=== PATIENT | female | born 1960 | race Caucasian/White ===

== ENCOUNTER → 2023-12-15 16:01 | Outpatient (REF) | payer OTHER, SELFPAY | LOC: WDC 16:01 | PROVIDERS: ATTENDING PHYSICIAN Obstetrics & Gynecology Gynecology; FAMILY PHYSICIAN Physician Assistant Medical | DX: Z12.31 Encounter for screening mammogram for malignant neoplasm of breast (principal) | CPT/HCPCS: 77063; 77067 ==

== ENCOUNTER → 2024-03-08 13:23 | Outpatient (REF) | payer OTHER, SELFPAY | LOC: RAD 13:23 | PROVIDERS: ATTENDING PHYSICIAN Physician Assistant Medical | DX: M79.604 Pain in right leg (principal); M79.89 Other specified soft tissue disorders | CPT/HCPCS: 93971 ==

== ENCOUNTER → 2024-04-05 08:51 | Outpatient (REF) | payer OTHER, SELFPAY | LOC: HWRAD 08:51 | PROVIDERS: ATTENDING PHYSICIAN Physician Assistant Medical | DX: M85.89 Other specified disorders of bone density and structure, multiple sites (principal) | CPT/HCPCS: 77080 ==

== ENCOUNTER → 2024-05-09 13:21 | Outpatient (REF) | payer OTHER, SELFPAY ==
[2024-05-09 13:50] LABS: % Basophils 0.9 % (0-2); % Eosinophils 2.6 % (0-6); % Immature Granulocytes 0.2 % (0-0.5); % Lymphocytes 21.7 % (20.5-51.1); % Monocytes 9.4 % (1.7-9.3); % Neutrophils 65.2 % (42.2-75.2); Absolute Basophils 0.1 10^3/uL (0-0.2); Absolute Eosinophils 0.2 10^3/uL (0-0.7); Absolute Lymphocytes 1.3 10^3/uL (1.2-3.4); Absolute Monocytes 0.6 10^3/uL (0.1-0.6); Absolute Neutrophils 3.8 10^3/uL (1.4-6.5); Hematocrit 40.2 % (37.0-47.0); Hemoglobin 13.1 g/dL (12.0-16.0); Mean Corp Hgb Conc. 32.6 g/dL (33.0-37.0); Mean Corpuscular Hgb 28.6 pg (27.0-31.0); Mean Corpuscular Volume 87.8 fL (81.0-99.0); Mean Platelet Volume 10.4 fL (7.4-10.4); Nucleated Red Blood Cells % 0 %; Platelet Count 231 10^3/uL (130-400); Red Blood Cell Count 4.58 10^6/uL (4.20-5.40); White Blood Cell Count 5.8 10^3/uL (4.8-10.8)
[2024-05-09 14:19] LABS: ALT (SGPT) 36 U/L (0-35); AST (SGOT) 35 U/L (14-36); Albumin 4.4 g/dl (3.5-5.0); Alkaline Phosphatase 65 U/L (38-126); Blood Urea Nitrogen 15 mg/dl (7-17); Calcium 9.9 mg/dl (8.4-10.2); Carbon Dioxide 31 mmol/L (22-30); Chloride 99 mmol/L (98-107); Glucose 99 mg/dl (70-99); Sodium 138 mmol/L (135-145); Total Bilirubin 1.1 mg/dl (0.2-1.3); Total Protein 7.6 g/dl (6.3-8.2); eGFR > 60.00
== END ==
LOC: RAD 13:21
PROVIDERS: ATTENDING PHYSICIAN Physician Assistant Medical
DX: E66.01 Morbid (severe) obesity due to excess calories (principal); I10 Essential (primary) hypertension; R06.02 Shortness of breath; I82.502 Chronic embolism and thrombosis of unspecified deep veins of left lower extremity
CPT/HCPCS: 36415; 71275; 80053; 85025; Q9967

== ENCOUNTER → 2024-05-31 11:10 | Outpatient (REF) | payer OTHER, SELFPAY | LOC: HWRCS 11:10 | PROVIDERS: ATTENDING PHYSICIAN Nurse Practitioner; FAMILY PHYSICIAN Physician Assistant Medical | DX: R06.09 Other forms of dyspnea (principal) | CPT/HCPCS: 78452; 93017; A9500; J2785 ==

== ENCOUNTER → 2024-06-16 09:58 | Outpatient (REF) | payer OTHER, SELFPAY | LOC: RAD 09:58 | PROVIDERS: ATTENDING PHYSICIAN Internal Medicine Cardiovascular Disease; FAMILY PHYSICIAN Physician Assistant Medical; OTHER PHYSICIAN Internal Medicine Critical Care Medicine | DX: R94.39 Abnormal result of other cardiovascular function study (principal); R06.09 Other forms of dyspnea | CPT/HCPCS: 75574; Q9967 ==

== ENCOUNTER → 2024-08-31 06:44 | Outpatient (REF) | payer OTHER, SELFPAY | LOC: HWRAD 06:44 | PROVIDERS: ATTENDING PHYSICIAN Physician Assistant Medical | DX: R10.9 Unspecified abdominal pain (principal) | CPT/HCPCS: 76700 ==

== ENCOUNTER → 2024-09-27 12:51 | Outpatient (REF) | payer OTHER, SELFPAY | LOC: RAD 12:51 | PROVIDERS: ATTENDING PHYSICIAN Physician Assistant Medical | DX: R05.9 Cough, unspecified (principal) | CPT/HCPCS: 71046 ==

== ENCOUNTER → 2024-09-28 11:28 | Outpatient (REF) | payer OTHER, SELFPAY | LOC: RAD 11:28 | PROVIDERS: ATTENDING PHYSICIAN Surgery; FAMILY PHYSICIAN Physician Assistant Medical | DX: N28.1 Cyst of kidney, acquired (principal) | CPT/HCPCS: 74170; Q9967 ==

== ENCOUNTER 2024-09-29 16:37 | Inpatient (IN) | payer OTHER, SELFPAY ==
[2024-09-29 11:48] VITALS: BP 159/83
--- NOTE | 2024-09-29 12:18 | ED.GENMED ---
History of Present Illness
General
Chief Complaint: Breathing Problem
Source: patient
Exam Limitations: none
Time Seen by Provider: 09/29/24 11:57
History of Present Illness
History of Present Illness:
64-year-old female with history of antiphospholipid syndrome, lichen planus, asthma, hypertension presents complaining of worsening dyspnea on exertion. She has been short of breath since June however the past several days has become much
worse. She now notes any minimal exertion creates shortness of breath. Time she has trouble completing her sentences. She is on warfarin for her antiphospholipid syndrome and history of DVT. Most recent INR was over 6. She has been currently
been holding the Coumadin because she took a round of steroid, prednisone over the past 5 days. She believes her shortness of breath improved slightly with her prednisone course. She notes mild leg swelling denies orthopnea. No chest pain. No
abdominal pain. No other complaints at this time
Phy Exam
Physical Exam
Physical Exam:
General: Well-appearing female no acute respiratory distress
HEENT: Normocephalic atraumatic neck is supple
Heart: Regular rate and rhythm
Lungs: Subtle inspiratory wheeze.
Abdomen is soft nontender nondistended
Extremities: No cyanosis but mild pitting edema bilateral lower extremities
Skin is warm no rash
Scores
Heart Failure Risk
Heart Failure Risk Score: Not Applicable
Course
Orders/Labs/Results
Orders:
Orders
09/29/24 12:17
Ipratropium/Albuterol Sulfate [Duoneb] 3 ml INH R NOW STA
09/29/24 12:25
Complete Blood Count/With Diff Urgent
Comprehensive Metabolic Panel Urgent
NT-proBNP Urgent
Prothrombin Time Urgent
Troponin I Urgent
09/29/24 12:52
EKG [Electrocardiogram (*1)] Urgent
Reason for Study: Shortness of Breath
EKG- Treatment ONCE
09/29/24 13:[address] Non Medication Order As Directed
Physician Order: Ambulatory pulse ox after neb - thanks
Above order entered?: Yes
09/29/24 14:08
CT Chest PE Study Urgent
Comment:
Reason For Exam: hypoxia
Abnormal Lab Results
09/29/24
12:25
Absolute Monos (auto) 0.8 H 10^3/uL
(0.1-0.6)
PT 26.9 H Sec
(11.4-14.6)
Carbon Dioxide 33 H mmol/L
(22-30)
BUN 20 H mg/dl
(7-17)
Total Bilirubin 2.1 H mg/dl
(0.2-1.3)
ALT 46 H U/L
(0-35)
09/29/24 12:25
09/29/24 12:25
Vital Signs
Initial and Last Documented VS:
Initial Vital Signs
Pulse Ox
93
09/29/24 11:32
Last Documented Vital Signs
Temp Pulse Resp BP Pulse Ox
98.5 F 80 20 128/75 95
09/29/24 11:48 09/29/24 14:15 09/29/24 14:15 09/29/24 14:15 09/29/24 14:15
MDM/Problems Addressed
Differential Diagnosis Includes:
Shortness of breath with exertion. Consider exacerbation of underlying asthma. Of note, patient started metoprolol about the same time her shortness of breath worsened. Consider CHF although recent echocardiogram documented in the chart
demonstrate ejection fraction of 60%. She had a CT scan of her abdomen yesterday as well which shows stable renal cyst. Chest x-ray performed yesterday was negative. No fever to suggest infectious source and pneumonia unlikely. She thinks the
albuterol rescue inhaler she has been using may be helping slightly.
Repeat INR pending. I reviewed x-ray of the chest from yesterday which is normal. No indication for repeat x-ray today and if INR is at least therapeutic no concern for PE. BNP and troponin pending. Try DuoNeb and ambulatory pulse ox
*Critical Care Note
Total Time (30-74mins, 75-104mins- exclusive of procedures): Not Applicable
Update Note
Update Note:
Patient did range as low as 86% here. Even at rest after ambulating she is 88% on room air. No significant distress. She was placed on nasal cannula oxygen. Despite this therapeutic INR, PE study was ordered given the profound hypoxia. PE study
was negative for acute findings. DuoNeb given. Admit to hospital for hypoxia possible asthma exacerbation
ED Attending Note
-
Portions of this chart may have been created with voice recognition software.� Occasional wrong word or��sound alike� substitutions may have occurred due to the inherent limitations of voice recognition software.
Discharge Plan
Departure
Patient Disposition: Admit
Date of Disposition: 09/29/24
Time of Disposition: 15:48
Presentation/result/management discussed w/ accepting MD/DO: Hospitalist
Discharge Problem:
Hypoxia
Prescriptions:
No Action
multivitamin Tablet
1 tab PO DAILY
warfarin 7.5 mg Tablet
7.5 mg PO DAILY
clobetasol 0.05 % Gel
1 applic TOPICAL BID
folic acid 1 mg Tablet
1 mg PO DAILY
hydroxychloroquine 200 mg Tablet
200 mg PO BID
lisinopril 40 mg Tablet
40 mg PO DAILY
magnesium 200 mg Tablet
600 mg PO DAILY
rosuvastatin 5 mg Tablet
5 mg PO DAILY
Glucosamine Complex-MSM Capsule
1 cap PO DAILY
metoprolol tartrate 25 mg Tablet
12.5 mg PO DAILY
fluoride (sodium) [Sodium Fluoride 5000 Dry Mouth] 1.1 % Paste
1 applic DENTAL HS
Humira Pen 40 mg/0.8 mL Pen Injector Kit
40 mg SC Q2W
cholecalciferol (vitamin D3) [Vitamin D3] 50 mcg (2,000 unit) Tablet
50 mcg PO DAILY
L.acidophilus-Bifido.longum [Probiotic Pearls] 15 mg (1 billion cell) Capsule,Delayed Release(Dr/Ec)
1 cap PO DAILY
Caltrate 600 plus D 600 mg-20 mcg (800 unit) Tablet,Chewable
1 tab PO DAILY
Vital High Protein 0.09 gram- 1 kcal/mL Liquid
2 ea PO DAILY
ivermectin 1 % Cream
1 applic TOPICAL DAILYPRN PRN (Reason: rosacia)
Metamucil 3.4 gram/5.4 gram Powder
1 tbsp PO DAILY
vitamin N96-uptpr acid 1,000-400 mcg Lozenge
1 alondra SUBLINGUAL DAILY
Trelegy Ellipta 200-62.5-25 mcg Blister With Device
1 inh INHALATION DAILY
zinc glycinate 30 mg Capsule
30 mg PO DAILY
Referrals:
Jeremy Freed PA-C [Family Provider, Family Practice]
Interventions
Interventions:
*Risk Screen - Suicide Last Done: 09/29/24 11:48
*General Assessment Last Done: 09/29/24 12:21
*Neglect/Abuse Screening Last Done: 09/29/24 11:48
*ED- Fall Risk Assessment Last Done: 09/29/24 12:21
*ED COVID-19 Vaccine History Last Done: 09/29/24 12:21
ED- Cardiac Assessment Last Done: 09/29/24 12:21
ED- Pulmonary Assessment Last Done: 09/29/24 12:21
Discharge Date and Time
Print Language: GERMAN
[2024-09-29 12:20] VITALS: BP 158/80
[2024-09-29] MEDS: DUONEB 3 ML INH ×2 (12:25→19:22)
[2024-09-29 12:42] LABS: % Basophils 0.6 % (0-2); % Eosinophils 1.6 % (0-6); % Immature Granulocytes 0.5 % (0-0.5); % Lymphocytes 20.5 % (20.5-51.1); % Monocytes 8.4 % (1.7-9.3); % Neutrophils 68.4 % (42.2-75.2); Absolute Basophils 0.1 10^3/uL (0-0.2); Absolute Eosinophils 0.1 10^3/uL (0-0.7); Absolute Lymphocytes 1.8 10^3/uL (1.2-3.4); Absolute Monocytes 0.8 10^3/uL (0.1-0.6); Absolute Neutrophils 6.1 10^3/uL (1.4-6.5); Hematocrit 40.7 % (37.0-47.0); Hemoglobin 13.9 g/dL (12.0-16.0); Mean Corp Hgb Conc. 34.2 g/dL (33.0-37.0); Mean Corpuscular Hgb 29.6 pg (27.0-31.0); Mean Corpuscular Volume 86.8 fL (81.0-99.0); Mean Platelet Volume 10.3 fL (7.4-10.4); Nucleated Red Blood Cells % 0 %; Platelet Count 249 10^3/uL (130-400); Red Blood Cell Count 4.69 10^6/uL (4.20-5.40); Red Cell Dist. Width 14.4 % (11.5-14.5); White Blood Cell Count 8.9 10^3/uL (4.8-10.8)
[2024-09-29 12:54] LABS: INR 2.44; PT 26.9 Sec (11.4-14.6)
[2024-09-29 13:13] LABS: NT-proBNP 23.8 pg/ml; Troponin I < 0.012 ng/ml
[2024-09-29 13:34] LABS: ALT (SGPT) 46 U/L (0-35); AST (SGOT) 36 U/L (14-36); Albumin 4.1 g/dl (3.5-5.0); Alkaline Phosphatase 46 U/L (38-126); Blood Urea Nitrogen 20 mg/dl (7-17); Calcium 9.7 mg/dl (8.4-10.2); Carbon Dioxide 33 mmol/L (22-30); Chloride 102 mmol/L (98-107); Glucose 90 mg/dl (70-99); Potassium 4.3 mmol/L (3.5-5.1); Sodium 139 mmol/L (135-145); Total Bilirubin 2.1 mg/dl (0.2-1.3); Total Protein 7.9 g/dl (6.3-8.2); eGFR > 60.00
[2024-09-29 14:15] VITALS: BP 128/75
--- NOTE | 2024-09-29 16:12 | HPS.HSE ---
Family Physician
-
Family Physician: Jeremy Freed PA-C
Chief Complaint
-
shortness of breath
History of Present Illness
64-year-old female past medical history of antiphospholipid syndrome on Coumadin, prior DVT, lichen planus, asthma, hypertension presenting with shortness of breath with exertion. She has been short of breath since June however this has become
a lot worse over the past week with minimal exertion. She has decreased O2 saturation. She does have some cough which is sometimes productive.
She saw pulmonary a few months ago and was diagnosed with asthma started on Trelegy Ellipta and has been taking albuterol every 6 hours. She was treated with 5 days of prednisone which she completed a few days ago. She is scheduled to have PFTs in
the near future. She did have some improvement. She also saw cardiology a few months ago and was started on metoprolol and statin.
She has chronic lower extremity swelling which improves by morning. Swelling is stable.
Recent INR was 6 three days ago and she did not her Coumadin for the past 3 days.
She was exposed to secondhand smoke growing up. Denies alcohol use.
Medical History
Past Medical History
Past Medical History: Reports Other (antiphospholipid syndrome on Coumadin, prior DVT, lichen planus, asthma, hypertension)
Past Surgical History: Reports None
Social History
Tobacco: Non-smoker
Alcohol: None
Drug: None
Family History
Family History: Not pertinent
Allergies / Home Medications
Allergies reflects when Allergies were last updated in [facility].
Home Medications with original date entered in [facility]
Allergy/Medication List:
Allergies
Allergy/AdvReac Type Severity Reaction Status Date / Time
SEASONAL Allergy ITCHY Uncoded 02/21/23 01:51
EYES/SNEEZING
Home Medications
L.acidophilus-bif.longum 15 mg (1 billion cell)capsule,delayed release (Probiotic Pearls) 1 cap PO DAILY 06/16/24
adalimumab 40 mg/0.8 mL subcutaneous pen kit (Humira Pen) 40 mg SC Q2W 06/16/24
calcium 600 mg (as carbonate)-vit D3 20 mcg (800 unit) chewable tablet (Caltrate plus D) 1 tab PO DAILY 06/16/24
cholecalciferol (vitamin D3) 50 mcg (2,000 unit) tablet (Vitamin D3) 50 mcg PO DAILY 06/16/24
clobetasol 0.05 % topical gel 1 applic topical BID 06/16/24
fluoride (sodium) 1.1 % dental paste (Sodium Fluoride 5000 Dry Mouth) 1 applic dental HS 06/16/24
fluticasone fur. 200 mcg-umeclid 62.5 mcg-vilant 25 mcg inhalat.powder (Trelegy Ellipta) 1 inh inhalation DAILY 06/16/24
folic acid 1 mg tablet 1 mg PO DAILY 06/16/24
ccnbkynsfzj-ait-fjpufdren-vitC capsule (Glucosamine Complex-MSM capsule) 1 cap PO DAILY 06/16/24
hydroxychloroquine 200 mg tablet 200 mg PO BID 06/16/24
ivermectin 1 % topical cream 1 applic topical DAILYPRN PRN rosacia 06/16/24
lisinopril 40 mg tablet 40 mg PO DAILY 06/16/24
magnesium 200 mg tablet 600 mg PO DAILY 06/16/24
metoprolol tartrate 25 mg tablet 12.5 mg PO DAILY 06/16/24
multivitamin 1 tab PO DAILY 06/16/24
nut.tx.impaired digest fxn 0.09 gram-1 kcal/mL oral liquid (Vital High Protein) 2 ea PO DAILY 06/16/24
psyllium husk 3.4 gram/5.4 gram oral powder (Metamucil) 1 tbsp PO DAILY 06/16/24
rosuvastatin 5 mg tablet 5 mg PO DAILY 06/16/24
vitamin B12 1,000 mcg-folic acid 400 mcg sublingual lozenge 1 alondra sublingual DAILY 06/16/24
warfarin 7.5 mg tablet 7.5 mg PO DAILY 06/16/24
zinc glycinate 30 mg capsule 30 mg PO DAILY 06/16/24
Review of Systems
-
History Source: Patient
A 12 point ROS was completed and negative except as noted: Yes
Constitutional: Reports No Symptoms
EENT: Reports No Symptoms
Respiratory: Reports See HPI
Cardiac: Reports No Symptoms
Abdomen/GI: Reports No Symptoms
: Reports No Symptoms
Musculoskeletal: Reports No Symptoms
Skin: Reports No Symptoms
Neurological: Reports No Symptoms
Endocrine: Reports No Symptoms
Hematologic/Lymphatic: Reports No Symptoms
Psych: Reports No Symptoms
Physical Exam
Vital Signs
Vital Signs
Temp Pulse Resp BP Pulse Ox
98.5 F 80 20 128/75 95
09/29/24 11:48 09/29/24 14:15 09/29/24 14:15 09/29/24 14:15 09/29/24 14:15
Physical Exam
General: Well Developed, Well Nourished and No Apparent Distress
HEENT: NormoCephalic, Moist mucous membranes and Atraumatic
Respiratory: Wheezes
Cardiac: S1/S2 and Regular Rhythm; No Murmur or Rub
GI: Soft, Non Tender, Non Distended and Normal Bowel Sounds; No Organomegaly
Rectal: Deferred by Provider
Musculoskeletal: No Clubbing, No Cyanosis and No Edema
Skin: No Rash
Neuro: Nonfocal/grossly intact
Laboratory Results
-
09/29/24 12:25
09/29/24 12:25
Laboratory Results
PT 26.9 Sec (11.4-14.6) H 09/29/24 12:25
INR 2.44 09/29/24 12:25
Total Bilirubin 2.1 mg/dl (0.2-1.3) H 09/29/24 12:25
AST 36 U/L (14-36) 09/29/24 12:25
ALT 46 U/L (0-35) H 09/29/24 12:25
Alkaline Phosphatase 46 U/L (38-126) 09/29/24 12:25
Troponin I < 0.012 ng/ml 09/29/24 12:25
Data Reviewed
-
Lab Data: Labs Reviewed by me
Old Records: Reviewed
Impression/Plan
-
IMPRESSION:
PLAN:
# Exertional dyspnea likely asthma flare
-Saturating 86% on room air
-Wheezing on examination
-CT PE shows no evidence of pulmonary embolism or aortic dissection,
- DuoNebs every 6 hours
- Dexamethasone 4 mg daily
-She is hesitant to continue high-dose steroids given elevated INR and lichen planus flaring from the steroids
# Recent Supratherapeutic INR secondary to steroids
- Improved and INR now 2.44
- Her goal INR is 2.5-3.5
- Recheck in AM
Antiphospholipid syndrome
- Continue Coumadin
- INR of 2.44
Prior DVT
Lichen planus
Essential hypertension
- Continue metoprolol, lisinopril
Full code
DVT prophylaxis�Coumadin
Regular diet
[2024-09-29 18:04] VITALS: BP 120/75
[2024-09-29 18:05] VITALS: BMI 39.6
[2024-09-29] MEDS: DUONEB INH (18:16)
[2024-09-29] MEDS: COUMADIN 7.5 MG PO (18:24)
[2024-09-29] MEDS: DECADRON 4 MG IV (18:30)
[2024-09-29] MEDS: TOPROL XL 12.5 MG PO (21:22)
[2024-09-29] MEDS: CRESTOR 5 MG PO (21:22)
[2024-09-29] MEDS: CLOBETASOL PROPIONATE 0.05% CREAM TOPICAL ×2 (21:22→21:27)
[2024-09-29 23:41] VITALS: BP 127/59
[2024-09-30 06:39] LABS: % Basophils 0.2 % (0-2); % Immature Granulocytes 0.4 % (0-0.5); % Lymphocytes 12.5 % (20.5-51.1); % Monocytes 6.2 % (1.7-9.3); % Neutrophils 80.7 % (42.2-75.2); Absolute Lymphocytes 0.7 10^3/uL (1.2-3.4); Absolute Monocytes 0.4 10^3/uL (0.1-0.6); Absolute Neutrophils 4.6 10^3/uL (1.4-6.5); Hematocrit 38.3 % (37.0-47.0); Hemoglobin 13.1 g/dL (12.0-16.0); Mean Corp Hgb Conc. 34.2 g/dL (33.0-37.0); Mean Corpuscular Hgb 29.2 pg (27.0-31.0); Mean Corpuscular Volume 85.5 fL (81.0-99.0); Mean Platelet Volume 10.4 fL (7.4-10.4); Nucleated Red Blood Cells % 0 %; Platelet Count 212 10^3/uL (130-400); Red Blood Cell Count 4.48 10^6/uL (4.20-5.40); White Blood Cell Count 5.7 10^3/uL (4.8-10.8)
[2024-09-30 06:45] LABS: INR 1.92; PT 22.5 Sec (11.4-14.6)
[2024-09-30] MEDS: NON-FORMULARY ITEM 1 UNIT INH (07:02)
[2024-09-30] MEDS: DUONEB 3 ML INH ×4 (07:02→19:44)
[2024-09-30 07:03] LABS: ALT (SGPT) 42 U/L (0-35); AST (SGOT) 28 U/L (14-36); Albumin 3.7 g/dl (3.5-5.0); Alkaline Phosphatase 47 U/L (38-126); Blood Urea Nitrogen 16 mg/dl (7-17); Calcium 9.5 mg/dl (8.4-10.2); Carbon Dioxide 28 mmol/L (22-30); Chloride 105 mmol/L (98-107); Estimated Creatinine Clearance 101 ml/min; Glucose 123 mg/dl (70-99); Potassium 4.4 mmol/L (3.5-5.1); Sodium 139 mmol/L (135-145); Total Bilirubin 1.4 mg/dl (0.2-1.3); Total Protein 7.2 g/dl (6.3-8.2); eGFR > 60.00
--- NOTE | 2024-09-30 07:40 | W.PN.HOSP.TC ---
Addendum entered and electronically signed by Rusty Azul MD 09/30/24 14:41:
Seen and examined by me independently in collaboration with the medical records specialist.
Lab data and imaging data reviewed.
Addendum as below :
Patient presents with new onset of progressive exertional shortness of breath with hypoxia. Not much of associated respiratory symptoms of cough or productive phlegm. No prior history of chronic lung disease. She is also hypoxic at rest on room
air. 88-91 finger pulse oximetry during my visit. She is without any distress. Currently without any reactive airways. Chest sounds clear.
No lower extremity edema but she does have history of what looks like dependent lower extremity edema. BNP not elevated. EF 62% on last stress test in May 2024. She says she apparently had echocardiogram testing for her evaluation of
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
Chest CT shows no evidence of PE. Mild bibasilar subsegmental atelectasis noted but otherwise commented as clear lungs.
Unexplained hypoxia and exertional shortness of breath. She does have history of lichen planus and I doubt it has got any relation with it. He she does have history of antiphospholipid antibody syndrome with prior history of venous thrombosis; she
is on Coumadin treatment. I would evaluate if there is any intrapulmonary shunting. Consult pulmonary.
Total time spent on today's encounter was 52 minutes which included time spent in counseling the patient/family regarding diagnosis and treatment plan as listed above, goals of care, and symptom management. Case was discussed with nursing staff,
specialists, and care coordinators/case management. All labs and imaging personally reviewed by me. Remainder the time spent in detailed review of previous records, lab data, imaging, and other medical provider documentation.
Original Note:
Today's Communication/Plan
-
Pulmonology consult
Continue steroids
Monitor INR
Wean off oxygen as able
Assessment / Plan
Assessment / Plan
Impression
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 Over the last 1 month she was referred to cardiology and
pulmonology by her primary care physician. Follows up with Gutierrez Stauffer stress test, echocardiogram, stress echocardiogram did not reveal any concern. Follows up with Dr. Flores, who did a 6-minute walk test and started her on
steroid course for 5 days, Trelegy Ellipta and albuterol inhaler. She did not require inhaler initially and was fine with Trelegy Ellipta but over the last 1 week she has been more short of breath and requiring albuterol. She is scheduled for PFTs
on October 11 and is in early stages of assessment.
In the ED, her saturations were dropping up to 70s, CT chest was done that did not reveal any pulmonary embolism. There was no acute concern on chest CT,trop.i and proBNP levels were normal. Was noted to have wheeze on examination and admitted for
dyspnea secondary to asthma exacerbation.
Assessment/plan
# Dyspnea secondary to asthma exacerbation
Chest has some occasional rhonchi and seems clear today
Still requiring 2 L of oxygen to maintain oxygen saturation
Unexplained hypoxemia-common causes ruled out
Concern for intrapulmonary shunt/intracardiac shunt
Pulmonology consult
Continue nebulizations
Continue dexamethasone 4 mg daily
# Supratherapeutic INR
Patient has history of antiphospholipid syndrome and DVT
Initially she was started on a steroid for 5 days for her asthma which affected her INR
Her INR was up to 7.2, she called her business education instructor who asked her to stop using warfarin, she repeated the INR next day it was 6.6
She did not take warfarin 2 days after that, and had a lot of broccoli
INR in ED 2.4 warfarin resumed at 7.5 mg every afternoon-Target INR is 2.5-3.5-continue to monitor
# Lichen planus
Diagnosed 2 to 2-1/2 years ago, involves mucous membranes
On Humira and hydroxychloroquine
Follows up with her operator prefinish
#Antiphospholipid syndrome
Diagnosed in 2022
On chronic Coumadin therapy, follows up with Dr. Warner
#Bilateral chronic lower extremity edema
#History of DVT
#Hypertension-continue metoprolol lisinopril
DVT prophylaxis-warfarin
CODE STATUS-full code
Anticipated Discharge: 24 - 48 hours
Subjective/Interval History
-
Date of Service: September 30, 2024
Patient complains of increased heart rate and tremors for 20 to 30 minutes following nebulizations, self resolved
Also complained of shortness of breath
Objective Data
-
Labs:
Laboratory Results
09/30/24
05:56
WBC 5.7
Hgb 13.1
Hct 38.3
Plt Count 212
PT 22.5 H
INR 1.92
Sodium 139
Potassium 4.4
Chloride 105
Carbon Dioxide 28
BUN 16
Creatinine 0.6
Glucose 123 H
Calcium 9.5
Total Bilirubin 1.4 H
AST 28
ALT 42 H
Alkaline Phosphatase 47
Vital Signs:
Vital Signs
Temp Pulse Resp BP Pulse Ox
98.2 F 81 18 127/59 91
09/29/24 23:41 09/30/24 07:08 09/30/24 07:08 09/29/24 23:41 09/30/24 07:08
I&O
09/29/24 09/30/24 10/01/24
06:59 06:59 06:59
Intake Total 960 / 960
Balance 960 / 960
Review of Systems
-
All other systems: Reviewed and negative
Physical Exam
-
General: Well Developed, Well Nourished, Comfortable and Other (Breathing on 2 L of oxygen)
HEENT: Moist Mucous Membranes and Anicteric
Respiratory: Clear to Auscultation and Rhonchi (Mild)
Cardiac: Regular Rhythm, S1/S2 and Tachycardic
GI: Soft, Nontender, Nondistended and Normal Bowel Sounds
Musculoskeletal: No Clubbing, No Cyanosis and Other (Mild bilateral pitting edema)
Skin: Warm and Dry
Neuro: Awake, AO x 3 and Nonfocal/Grossly Intact
Psych: Calm
[2024-09-30 08:27] VITALS: BP 132/76
[2024-09-30] MEDS: MAG-TAB SR 84 MG PO (08:27)
[2024-09-30] MEDS: VITAMIN B-12 1000 MCG PO (08:27)
[2024-09-30] MEDS: VITAMIN D3 (cholecalciferol) 50 MCG PO (08:27)
[2024-09-30] MEDS: FOLVITE 1 MG PO (08:27)
[2024-09-30] MEDS: OSCAL 500 + D 500 MG PO (08:27)
[2024-09-30] MEDS: MUCINEX 600 MG PO (08:27)
[2024-09-30] MEDS: PLAQUENIL 200 MG PO (08:27)
[2024-09-30] MEDS: THERAGRAN 1 TABLET PO (08:27)
[2024-09-30] MEDS: ZESTRIL 40 MG PO (08:27)
[2024-09-30] MEDS: VISBIOME 1 CAP PO (08:28)
[2024-09-30] MEDS: METAMUCIL, KONSYL 1 PACKET PO (08:28)
[2024-09-30] MEDS: DECADRON 4 MG IV ×3 (08:28→23:40)
[2024-09-30] MEDS: CLOBETASOL PROPIONATE 0.05% CREAM 1 APPLIC TOPICAL (09:43)
--- NOTE | 2024-09-30 11:57 | CM ---
Alert awake oriented patient who lives with her son TATIANNA in a 2 story home with 3 step to enter and 15 steps to bed and bathroom. She is independent in driving and in all activities of daily living.She was offered VN she declined need.Her family
will drive him home. She is on new oxygen here in hospital.
No VN hx / No SNF history
Pharmacy [facility] [address]
PCP DR Freed
[facility] Home Declined [facility]N [facility] for oxygen needs
--- NOTE | 2024-09-30 14:40 | CON.PUL ---
Consultation
Consultation Request
Date/Time Consultation Requested: 09/30
Date/Time Consultation Performed: 09/30
Reason for Consultation: Hypoxia
Medical History
-
History of Present Illness:
History obtained from the patient and also obtained from reviewing hospital records and outpatient records. Patient with complex medical history including antiphospholipid antibody syndrome on chronic Coumadin therapy, history of DVT, lichen
planus, history of asthma. Patient states symptoms have been present for about 6 months. She had recently seen pulmonary. She was started on inhaler therapy, albuterol. Her primary physician given her few days of prednisone last week which may
have helped although patient is not sure. She also had a cardiology workup which was negative. She now presents herself to the [facility] because of increased shortness of breath which she noted walking from the parking lot to work. She
also noted increased swelling in the legs. She describes nocturnal cough despite sleeping upright. She just checked her saturation at home, and it goes down as low as 86%. We are asked to comment on her pulmonary process
Of note, patient has seen rheumatology in the past, extensive autoimmune workup negative
Patient describes some nonspecific sweats over the last week
.
PMH: Antiphospholipid syndrome on Coumadin sees hematology, history of DVT, lichen planus sees ENT, history of hypertension
Past Medical History
Past Medical History: None (See above)
Past Surgical History: None ( see above)
Social History
Tobacco: Non-smoker (Extensive secondhand smoke)
Alcohol: None
Drug: None
Personal:
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
Family History
Family History: Reviewed & Not Pertinent (Family history of autoimmune disease including lupus, Sjogren's, rheumatoid arthritis. There is also family history of morbid obesity)
Allergies / Home Medications
Allergies
Allergy/AdvReac Type Severity Reaction Status Date / Time
pollen extracts Allergy SEASONAL-ITCHY Verified 09/29/24 16:27
EYES/SNEEZING
Home Medications
�Medication �Instructions �Recorded �Confirmed �Last Taken �Type
L.acidophilus-bif.longum 15 mg (1 1 cap PO DAILY Supplement 06/16/24 09/29/24 06/16/24 History
billion cell)capsule,delayed
release (Probiotic Pearls)
adalimumab 40 mg/0.8 mL 40 mg SC Q2W rheumatologic 06/16/24 09/29/24 06/08/24 History
subcutaneous pen kit (Humira Pen) condition
calcium 600 mg (as carbonate)-vit 1 tab PO DAILY Supplement 06/16/24 09/29/24 06/15/24 History
D3 20 mcg (800 unit) chewable
tablet (Caltrate plus D)
cholecalciferol (vitamin D3) 50 50 mcg PO DAILY Supplement 06/16/24 09/29/24 06/16/24 History
mcg (2,000 unit) tablet (Vitamin
D3)
clobetasol 0.05 % topical gel 1 applic topical BID vaginal rash 06/16/24 09/29/24 06/16/24 History
fluoride (sodium) 1.1 % dental 1 applic dental HS dental 06/16/24 09/29/24 06/15/24 History
paste (Sodium Fluoride 5000 Dry
Mouth)
fluticasone fur. 200 mcg-umeclid 1 inh inhalation DAILY 06/16/24 09/29/24 06/16/24 History
62.5 mcg-vilant 25 mcg Lung/Breathing Issues
inhalat.powder (Trelegy Ellipta)
folic acid 1 mg tablet 1 mg PO DAILY Supplement 06/16/24 09/29/24 06/16/24 History
kfxhkvpzsjw-mkb-fpzjiyfgn-vitC 1 cap PO DAILY Supplement 06/16/24 09/29/24 06/16/24 History
capsule (Glucosamine Complex-MSM
capsule)
hydroxychloroquine 200 mg tablet 200 mg PO DAILY rheumatologic 06/16/24 09/29/24 06/16/24 History
condition
ivermectin 1 % topical cream 1 applic topical DAILYPRN PRN 06/16/24 09/29/24 Unknown History
rosacia
lisinopril 40 mg tablet 40 mg PO DAILY Blood Pressure 06/16/24 09/29/24 06/15/24 History
magnesium 200 mg tablet 600 mg PO DAILY Supplement 06/16/24 09/29/24 06/16/24 History
multivitamin 1 tab PO DAILY Supplement 06/16/24 09/29/24 06/16/24 History
nut.tx.impaired digest fxn 0.09 2 ea PO DAILY Supplement 06/16/24 09/29/24 06/15/24 History
gram-1 kcal/mL oral liquid (Vital
High Protein)
psyllium husk 3.4 gram/5.4 gram 1 tbsp PO DAILY Gastrointestinal 06/16/24 09/29/24 06/15/24 History
oral powder (Metamucil) Issue
rosuvastatin 5 mg tablet 5 mg PO HS High Cholesterol 06/16/24 09/29/24 06/15/24 History
vitamin B12 1,000 mcg-folic acid 1 alondra sublingual DAILY Supplement 06/16/24 09/29/24 06/16/24 History
400 mcg sublingual lozenge
warfarin 7.5 mg tablet 7.5 mg PO QPM Blood Clot 06/16/24 09/29/24 06/15/24 History
Prevention/Tx
zinc glycinate 30 mg capsule 30 mg PO DAILY Supplement 06/16/24 09/29/24 06/16/24 History
albuterol sulfate 90 mcg/actuation 1 puff inhalation Q4HPRN PRN 09/29/24 09/29/24 09/29/24 06:00 History
aerosol inhaler shortness of breath
dextromethorphan HBr 15 mg tablet 15 mg PO HSPRN PRN cough 09/29/24 09/29/24 Unknown History
(Delsym Cough)
guaifenesin 600 mg tablet, 600 mg PO DAILY Congestion 09/29/24 09/29/24 Unknown History
extended release 12 hr (Mucinex)
metoprolol succinate 25 mg 12.5 mg PO HS Blood Pressure 09/29/24 09/29/24 Unknown History
tablet,extended release 24 hr
nitroglycerin 0.4 mg sublingual 0.4 mg sublingual Q5MPRN PRN chest 09/29/24 09/29/24 Unknown History
tablet pain
Review of Systems
-
All other systems: Negative unless noted
Vitals / Labs / Diagnostic Testing
Vital Signs
Temp Pulse Resp BP Pulse Ox
97.8 F 98 20 132/76 92
09/30/24 08:27 09/30/24 08:27 09/30/24 08:27 09/30/24 08:27 09/30/24 11:50
Lab Data
09/30/24 05:56
09/30/24 05:56
Laboratory Results
09/30/24
05:56
PT 22.5 H
INR 1.92
Diagnostic Testing:
Physical Exam
-
HEENT: Normocephalic and Anicteric
Cardiovascular: S1/S2, Regular Rhythm, Murmur (2/6 systolic murmur), Peripheral Edema (Trace left lower extremity) and Calf Tenderness (n)
Respiratory: Wheeze (n), Rales (Fine crackles bilaterally), Rhonchi and Non-Labored Respirations
GI: Soft, Non Distended and Non Tender
Neurology: Awake, Alert, Oriented and No Motor Deficits
Skin: Good Color
General: Comfortable
Assessment
-
64-year-old female with history of APS on chronic Coumadin therapy, history of left lower extremity DVT followed by hematology, presents with 5 months of intermittent shortness of breath. She was started on inhaler therapy which she thought
initially helped but now notes increased shortness of breath with simple ambulation, saturation at home goes as low as 86%. She does not have oxygen therapy at home. She was treated with steroids empirically last week with her primary, now
presents with increased shortness of breath and hypoxia. We are asked to comment on a pulmonary process
Acute hypoxic respiratory insufficiency
86% on room air, questionable chronic component
Bilateral groundglass changes per CT imaging (my review)
Fine crackles on exam
17 pound weight loss, intentional
Conditions present prior to admission
History of APS, on chronic Coumadin
Follows hematology (Carbajal)
History of left lower extremity DVT
Recently diagnosed lichen planus
History of asthma
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
Hypertension
GERD
Family history of autoimmune disease (Sjogren's, lupus, RA, FM)
Patient with negative rheumatological workup 2021
Plan/recommendations
At this time, patient appears to be nontoxic but has shown evidence of hypoxia, 86% on room air
Patient states she has noticed this on and off over the past few weeks to months
Treated with steroids last week, thinks it may have helped somewhat but not sure
Patient has had extensive rheumatological workup in the past, negative
Fine crackles on exam noted
Reviewed CT chest. Per my review there is diffuse groundglass abnormality
Prior CT chest earlier this year showed a mosaic pattern
Cardiac workup to date has been negative
Moving forward, we reviewed the differential for diffuse groundglass infiltrate
Inflammation, infection, fluid are all possibilities
She describes exposure to significant pollen and was working outdoors in her garden all weekend and noticed increased symptoms thereafter
She claims she has a hypersensitivity to mold
For now, we will need to treat empiric inflammation and possible infection
Would recommend starting Zithromax
Will increase Decadron to every 8 hours IV
Add GERD therapy
Positional therapy
Low suspicion for thromboembolic process given chronic warfarin therapy
Given crackles and diffuse groundglass changes, do not feel that additional testing is necessary to rule out shunt (i.e. VQ scan to assess shunt physiology)
Will reassess over the next 24 to 48 hours
If feeling better, consider transition to prednisone 40 with slow taper over the next 2 weeks
Patient is scheduled to follow-up in the office with PFT 10/11/2024
Also discussed possibility of fluid. Patient does describe symptoms symptoms suggest sleep disordered breathing but she has lost 17 pounds intentionally
she may require additional testing depending on clinical course but this can be determined as outpatient
The above was reviewed like with the patient. All questions answered
Complex decision-making process
We will follow
[2024-09-30 15:14] VITALS: BP 106/69
[2024-09-30 17:07] LABS: NT-proBNP 26.1 pg/ml
[2024-09-30] MEDS: COUMADIN 10 MG PO (17:33)
[2024-09-30 18:46] LABS: Erythrocyte Sed Rate 40 mm/hour (0-20)
[2024-09-30] MEDS: PEPCID 20 MG PO (21:23)
[2024-09-30] MEDS: TOPROL XL 12.5 MG PO (21:23)
[2024-09-30] MEDS: CRESTOR 5 MG PO (21:23)
[2024-09-30] MEDS: VIBRAMYCIN 100 MG PO (21:23)
[2024-09-30] MEDS: CLOBETASOL PROPIONATE 0.05% CREAM TOPICAL (21:29)
[2024-09-30 23:32] VITALS: BP 117/71
[2024-10-01] MEDS: DUONEB 3 ML INH ×4 (07:15→18:07)
[2024-10-01 07:25] VITALS: BP 120/97
--- NOTE | 2024-10-01 07:43 | W.PN.HOSP.TC ---
Addendum entered and electronically signed by Rusty Azul MD 10/01/24 12:59:
Seen and examined by me independently in collaboration with the medical intern.
Lab data and imaging data reviewed.
Addendum as below :
Patient presents with subacute to chronic exertional shortness of breath with hypoxia.
Pulmonary consultation was obtained and chest CT imaging raises concern apparently for airspace disease and she has faint to bilateral crackles in all concerning for either inflammatory/infectious lung issue and started on steroids along with
doxycycline for atypical bacterial coverage. No active reactive airways.
Continue with steroids per pulmonary.
Obtain home O2 eval.
Coumadin dose for today. INR 2.7.
Original Note:
Today's Communication/Plan
-
Change warfarin dose to 7.5 mg-given INR of 2.79-continue to monitor
Continue antibiotics and steroids
Home oxygen assessment
Assessment / Plan
Assessment / Plan
Impression
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 Over the last couple of months, she was referred to cardiology and
pulmonology by her primary care physician. Follows up with Dr. Neeru Phillips, Gutierrez stress test, echocardiogram, stress echocardiogram did not reveal any concern. Follows up with Dr. Flores, who did a 6-minute walk test and started her on
steroid course for 5 days, Trelegy Ellipta and albuterol inhaler. She did not require inhaler initially and was fine with Trelegy Ellipta but over the last 1 week she has been more short of breath and requiring albuterol. She is scheduled for PFTs
on October 11 and is in early stages of assessment.
In the ED, her saturations were dropping up to 70s, CT chest was done that did not reveal any pulmonary embolism. There was no acute concern on chest CT,trop.i and proBNP levels were normal. Was noted to have wheeze on examination and admitted for
dyspnea secondary to asthma exacerbation.
Assessment/plan
# Unexplained hypoxemia, most likely secondary to inflammation in the lungs
Faint crackles bilaterally and chest-continually requiring 2 L of oxygen to maintain saturation
CT chest negative for pulmonary embolism-cardiac markers normal-chest CT consistent with bilateral groundglass appearance
Based on chest CT findings and crackles in chest-treat inflammation with Vibramycin and IV steroids
Pulmonology consult appreciated-suggested to continue to treat empiric inflammation and possible infection-do not feel additional testing is necessary(i.e. VQ scan to assess shunt physiology)
Patient scheduled for pulmonary function test for October 11, 2024-continue workup on outpatient basis
# Supratherapeutic INR
Patient has history of antiphospholipid syndrome and DVT
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
Continue 7.5 mg warfarin and monitor INR-adjust accordingly
# Lichen planus
Diagnosed 2 to 2-1/2 years ago, involves mucous membranes-On Humira and hydroxychloroquine
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
#Antiphospholipid syndrome
Diagnosed in 2022
On chronic Coumadin therapy, follows up with Dr. Warner
#Bilateral chronic lower extremity edema
#History of DVT
#Hypertension-continue metoprolol lisinopril
DVT prophylaxis-warfarin
CODE STATUS-full code
Anticipated Discharge: 24 - 48 hours
Subjective/Interval History
-
Date of Service: October 01, 2024
Feeling better subjectively, still requires oxygen, reports oxygen saturation dropping in 80s when she walks around and exerts herself
Objective Data
-
Labs:
Laboratory Results
10/01/24
07:28
WBC Pending
Hgb Pending
Hct Pending
Plt Count Pending
PT Pending
INR Pending
Sodium Pending
Potassium Pending
Chloride Pending
Carbon Dioxide Pending
BUN Pending
Creatinine Pending
Glucose Pending
Calcium Pending
Vital Signs:
Vital Signs
Temp Pulse Resp BP Pulse Ox
98.0 F 80 18 117/71 90
09/30/24 23:32 10/01/24 07:19 10/01/24 07:19 09/30/24 23:32 10/01/24 07:19
I&O
09/30/24 10/01/24 10/02/24
06:59 06:59 06:59
Intake Total 960 / 960 1200 / 1200
Balance 960 / 960 1200 / 1200
Review of Systems
-
All other systems: Reviewed and negative
Physical Exam
-
General: Well Developed, Well Nourished, No Apparent Distress and Other (Currently on 2 L of oxygen)
Respiratory: Crackles (Faint crackles bilaterally)
Cardiac: Regular Rhythm, S1/S2 and Tachycardic
GI: Soft, Nontender, Nondistended and Normal Bowel Sounds
Musculoskeletal: No Clubbing, No Cyanosis and Other (Mild bilateral pitting edema)
Skin: Warm and Dry
Neuro: Awake, AO x 3 and Nonfocal/Grossly Intact
Psych: Calm
[2024-10-01] MEDS: NON-FORMULARY ITEM 1 UNIT INH (08:00)
[2024-10-01 08:48] LABS: INR 2.79; PT 29.4 Sec (11.4-14.6)
[2024-10-01] MEDS: VITAMIN B-12 1000 MCG PO (08:50)
[2024-10-01] MEDS: DECADRON 4 MG IV ×3 (08:50→23:59)
[2024-10-01] MEDS: VISBIOME 1 CAP PO (08:50)
[2024-10-01] MEDS: OSCAL 500 + D 500 MG PO (08:50)
[2024-10-01] MEDS: MAG-TAB SR 84 MG PO (08:50)
[2024-10-01] MEDS: MUCINEX 600 MG PO (08:50)
[2024-10-01] MEDS: ZESTRIL 40 MG PO (08:50)
[2024-10-01] MEDS: METAMUCIL, KONSYL 1 PACKET PO (08:50)
[2024-10-01] MEDS: PEPCID 20 MG PO ×2 (08:50→21:02)
[2024-10-01] MEDS: PLAQUENIL 200 MG PO (08:50)
[2024-10-01] MEDS: THERAGRAN 1 TABLET PO (08:50)
[2024-10-01] MEDS: VIBRAMYCIN 100 MG PO ×2 (08:50→21:10)
[2024-10-01] MEDS: CLOBETASOL PROPIONATE 0.05% CREAM 1 APPLIC TOPICAL (08:51)
[2024-10-01] MEDS: FOLVITE 1 MG PO (08:51)
[2024-10-01] MEDS: VITAMIN D3 (cholecalciferol) 50 MCG PO (08:59)
[2024-10-01 09:04] LABS: Hematocrit 40.5 % (37.0-47.0); Hemoglobin 13.6 g/dL (12.0-16.0); Mean Corp Hgb Conc. 33.6 g/dL (33.0-37.0); Mean Corpuscular Volume 86.4 fL (81.0-99.0); Mean Platelet Volume 11.2 fL (7.4-10.4); Platelet Count 287 10^3/uL (130-400); Red Blood Cell Count 4.69 10^6/uL (4.20-5.40); Red Cell Dist. Width 14.4 % (11.5-14.5); White Blood Cell Count 9.9 10^3/uL (4.8-10.8)
[2024-10-01 09:43] LABS: Blood Urea Nitrogen 19 mg/dl (7-17); Calcium 9.6 mg/dl (8.4-10.2); Carbon Dioxide 26 mmol/L (22-30); Chloride 105 mmol/L (98-107); Estimated Creatinine Clearance 87 ml/min; Glucose 120 mg/dl (70-99); Potassium 4.5 mmol/L (3.5-5.1); Sodium 141 mmol/L (135-145); eGFR > 60.00
[2024-10-01] MEDS: NON-FORMULARY ITEM 1 GRAM TOPICAL (13:23)
[2024-10-01] MEDS: NON-FORMULARY ITEM 1 % TOPICAL (13:23)
--- NOTE | 2024-10-01 14:43 | W.PN.PUL3 ---
Today's Communication / Plan
-
Systemic steroids with slow taper
Already takes Trelegy 200mcg as an outpatient --> this is currently ordered for her and should be continued upon discharge
Change DuoNebs to nebulized albuterol 1.25 mg; no need for Atrovent given she is already getting Trelegy
Pepcid
Coumadin
Up OOB as tolerated
Encourage incentive spirometer
Outpatient pulmonary office follow-up already arranged with Dr. Flores for 10/11/2024 with full PFTs
Pulmonary service will continue to follow
Assessment
-
64-year-old female with history of APS on chronic Coumadin therapy, history of left lower extremity DVT followed by hematology, presents with 5 months of intermittent shortness of breath. She was started on inhaler therapy which she thought
initially helped but now notes increased shortness of breath with simple ambulation, saturation at home goes as low as 86%. She does not have oxygen therapy at home. She was treated with steroids empirically last week with her primary, now
presents with increased shortness of breath and hypoxia. We are asked to comment on a pulmonary process
Acute hypoxic respiratory insufficiency
86% on room air, questionable chronic component
Bilateral groundglass changes per CT imaging with lower lobe predominant bronchial wall thickening consistent with bronchiolitis
Fine crackles on exam
17 pound weight loss, intentional
Conditions present prior to admission
History of APS, on chronic Coumadin
Follows hematology (Solomon)
History of left lower extremity DVT
Recently diagnosed lichen planus on Humira as an outpatient
History of asthma
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
Hypertension
GERD
Family history of autoimmune disease (Sjogren's, lupus, RA, FM)
Patient with negative rheumatological workup 2021
Plan/recommendations
At this time, patient appears to be nontoxic but has shown evidence of hypoxia, 86% on room air (as of today, 10/01/2024, she is breathing comfortably on 2 L/min nasal cannula)
Patient states she has noticed this on and off over the past few weeks to months
Treated with steroids last week, thinks it may have helped somewhat but not sure
Patient has had extensive rheumatological workup in the past, negative
Fine crackles on exam noted
Reviewed CT chest. Per my review there is diffuse groundglass abnormality
Prior CT chest earlier this year showed a mosaic pattern
Cardiac workup to date has been negative
Moving forward, we reviewed the differential for diffuse groundglass infiltrate. She also has significant bronchial wall thickening in the lower lobes bilaterally consistent with a bronchiolitis
Inflammation, infection, fluid are all possibilities
She describes exposure to significant pollen and was working outdoors in her garden all weekend and noticed increased symptoms thereafter
She claims she has a hypersensitivity to mold
For now, we will need to treat empiric inflammation and possible infection
Continue doxycycline
Continue Decadron 4mgIV q8hr with eventual transition to slow taper
Pepcid
Positional therapy
She reports that she is getting jittery with the DuoNebs - lower the dose of albuterol and no need for atrovent given she is already receiving trelegy
Given the significant bronchial wall thickening seen on CTA chest from 09/29/2024, believe that she would benefit from an inhaled corticosteroid in addition to slow oral steroid taper--> she is already taking Trelegy 200mcg, which she should continue
Low suspicion for thromboembolic process given chronic warfarin therapy
Given crackles and diffuse groundglass changes, do not feel that additional testing is necessary to rule out shunt (i.e. VQ scan to assess shunt physiology)
Will reassess over the next 24 to 48 hours
If feeling better, consider transition to prednisone 40 with slow taper over the next 2 weeks while taking her trelegy
Patient is scheduled to follow-up in the office with Dr. Flores with PFT 10/11/2024
Also discussed possibility of fluid. Patient does describe symptoms suggestive of sleep disordered breathing but she has lost 17 pounds intentionally
she may require additional testing depending on clinical course but this can be determined as outpatient
The above was reviewed like with the patient. All questions answered
Complex decision-making process
We will follow
Total time spent today was 36 minutes for this encounter. Time includes reviewing laboratory test/imaging results, reviewing pertinent medical records, obtaining and reviewing medical history, performing an appropriate exam, ordering medications,
tests and procedures. Time also includes documentation of this encounter, coordinating patient care and communicating with other healthcare professionals. Total time does not include separately billed tests performed on this date of service.
Patient was seen and evaluated on 10/01/2024
Subjective Data
-
Date of Service:
Date of Service: October 01, 2024
Chief Complaint: Pulmonary Follow Up
Subjective:
Patient seen this morning. She feels good today. Gets jittery with the DuoNebs. Denies chest pain, MCBRIDE, fevers or chills.
Review of Systems
General: Other (Negative unless mentioned above)
Objective Data
Data Reviewed
Vital Signs / I&O / Oxygen:
Vital Signs
Temp Pulse Resp BP Pulse Ox
97.8 F 91 20 120/97 94
10/01/24 07:25 10/01/24 07:25 10/01/24 07:25 10/01/24 08:50 10/01/24 09:00
Intake and Output
09/30/24 10/01/24 10/02/24
06:59 06:59 06:59
Intake Total 960 / 960 1200 / 1200
Balance 960 / 960 1200 / 1200
SaO2 94
Nasal Cannula flow liters per 2
minute
Physical Exam
General: Respiratory Distress (negative), Comfortable and Chills (negative)
HEENT: Normocephalic and Anicteric
Cardiovascular: S1-S2, Murmur (RUDDY heard best at [facility]) and Peripheral Edema (+1 lower extremity edema bilaterally)
Respiratory: Wheeze (Chowan upon expiration mainly in the right upper lobe), Crackles (Bibasilar), Rhonchi (negative) and Non-Labored Respirations
GI: Soft, Non Distended, Non Tender and Normal Bowel Sounds
Neurology: AO x 3 and Tremors (negative)
Skin: Warm, Dry, Cyanosis (negative) and Jaundice (negative)
Labs/Micro/Reports
Lab Data
10/01/24 07:28
10/01/24 07:28
Laboratory Results
10/01/24
07:28
PT 29.4 H
INR 2.79
[2024-10-01 15:35] VITALS: BP 135/69
[2024-10-01] MEDS: COUMADIN 7.5 MG PO (16:20)
[2024-10-01] MEDS: VENTOLIN NEBULES INH (20:20)
[2024-10-01] MEDS: CLOBETASOL PROPIONATE 0.05% CREAM TOPICAL (20:57)
[2024-10-01] MEDS: VIBRAMYCIN PO (21:02)
[2024-10-01] MEDS: CRESTOR 5 MG PO (21:02)
[2024-10-01] MEDS: TOPROL XL 12.5 MG PO (21:02)
[2024-10-01 23:05] VITALS: BP 149/77
[2024-10-02] MEDS: VENTOLIN NEBULES 1.25 MG INH ×3 (07:09→19:40)
[2024-10-02] MEDS: NON-FORMULARY ITEM 1 UNIT INH (07:09)
[2024-10-02 07:25] VITALS: BP 135/69
--- NOTE | 2024-10-02 07:44 | W.PN.HOSP.TC ---
Addendum entered and electronically signed by Rusty Azul MD 10/02/24 15:33:
Seen and examined by me independently in collaboration with the medical scheduler.
Lab data and imaging data reviewed.
Addendum as below :
Improved symptom of shortness of breath. Improved ambulation without much difficulty now. Not hypoxic at rest. Home O2 eval shows drop in pulse ox to 88% on 2 L.
Chest without any crackles or wheeze.
With clinical improvement over eval start steroid taper-switch to p.o. prednisone, continue with antibiotics per pulmonary. Discharge home with home O2 and follow with pulmonary as an outpatient.
Original Note:
Today's Communication/Plan
-
Arrange home oxygen
Hold warfarin today
Repeat INR tomorrow
Discharge planning with rn case mgr
Assessment / Plan
Assessment / Plan
Impression
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 Over the last couple of months, she was referred to cardiology and
pulmonology by her primary care physician. Follows up with Dr. Neeru Phillips, Gutierrez stress test, echocardiogram, stress echocardiogram did not reveal any concern. Follows up with Dr. Flores, who did a 6-minute walk test and started her on
steroid course for 5 days, Trelegy Ellipta and albuterol inhaler. She did not require inhaler initially and was fine with Trelegy Ellipta but over the last 1 week she has been more short of breath and requiring albuterol. She is scheduled for PFTs
on October 11 and is in early stages of assessment.
In the ED, her saturations were dropping up to 70s, CT chest was done that did not reveal any pulmonary embolism. There was no acute concern on chest CT,trop.i and proBNP levels were normal.
Admitted for management of acute inflammation in the lungs based on groundglass appearance of CT, faint crackles in chest, and oxygen requirement.
Assessment/plan
# Unexplained hypoxemia, most likely secondary to inflammation in the lungs
CT chest negative for pulmonary embolism-cardiac markers normal-chest CT consistent with bilateral groundglass appearance
Based on chest CT findings and crackles in chest-treat inflammation with Vibramycin and IV steroids
Pulmonology consult appreciated-suggested to continue to treat empiric inflammation and possible infection-do not feel additional testing is necessary(i.e. VQ scan to assess shunt physiology)
Patient scheduled for pulmonary function test for October 11, 2024-continue workup on outpatient basis
Chest is clear today, cannot hear any crackles, still has oxygen requirement on exertion
# Supratherapeutic INR
Patient has history of antiphospholipid syndrome and DVT
Diligently keeps record of her INR and coordinates with building serviceman-her warfarin was on hold at home for 2 days as advised by the building serviceman for supratherapeutic INR of 7-resumed in the ER for INR of 2.4
Daily INR and warfarin dose adjustment
INR 4.6 on 10/02-Skip warfarin today-repeat INR tomorrow, proceed accordingly
# Lichen planus
Diagnosed 2 to 2-1/2 years ago, involves mucous membranes-On Humira and hydroxychloroquine
Follows up with her sports book server-continue metronidazole/ivermectin creams the patient brought with her
#Antiphospholipid syndrome
Diagnosed in 2022
On chronic Coumadin therapy, follows up with Dr. Warner
#Bilateral chronic lower extremity edema
#History of DVT
#Hypertension-continue metoprolol lisinopril
DVT prophylaxis-warfarin
CODE STATUS-full code
Anticipated Discharge: 24 - 48 hours
Subjective/Interval History
-
Date of Service: October 02, 2024
Patient feeling fine, breathing on room air, requirement of oxygen on exertion, afebrile
Objective Data
-
Labs:
Laboratory Results
10/02/24
06:58
PT Pending
INR Pending
Sodium Pending
Potassium Pending
Chloride Pending
Carbon Dioxide Pending
BUN Pending
Creatinine Pending
Glucose Pending
Calcium Pending
Vital Signs:
Vital Signs
Temp Pulse Resp BP Pulse Ox
97.8 F 64 18 149/77 94
10/01/24 23:05 10/02/24 07:10 10/02/24 07:10 10/01/24 23:05 10/02/24 07:10
I&O
10/01/24 10/02/24 10/03/24
06:59 06:59 06:59
Intake Total 1200 / 1200 1560 / 1560
Balance 1200 / 1200 1560 / 1560
Review of Systems
-
All other systems: Reviewed and negative
Physical Exam
-
General: No Apparent Distress, Comfortable and Obese (BMI 39.6)
HEENT: Moist Mucous Membranes and Anicteric
Respiratory: Clear to Auscultation; Negative Wheezes, Rales or Rhonchi
Cardiac: Regular Rhythm and S1/S2; Negative Murmur, Rub or Gallop
GI: Soft, Nontender, Nondistended and Normal Bowel Sounds
Musculoskeletal: No Clubbing and No Cyanosis
Skin: Warm and Dry
Neuro: Awake, AO x 3 and Nonfocal/Grossly Intact
Psych: Calm
[2024-10-02 08:27] LABS: INR 4.61
[2024-10-02] MEDS: FOLVITE 1 MG PO (08:29)
[2024-10-02] MEDS: PEPCID 20 MG PO ×2 (08:29→20:52)
[2024-10-02] MEDS: METAMUCIL, KONSYL 1 PACKET PO (08:29)
[2024-10-02] MEDS: VITAMIN B-12 1000 MCG PO (08:29)
[2024-10-02] MEDS: DECADRON 4 MG IV ×3 (08:30→23:00)
[2024-10-02] MEDS: ZESTRIL 40 MG PO (08:30)
[2024-10-02] MEDS: VIBRAMYCIN 100 MG PO ×2 (08:30→20:52)
[2024-10-02] MEDS: MAG-TAB SR 84 MG PO (08:30)
[2024-10-02] MEDS: MUCINEX 600 MG PO (08:30)
[2024-10-02] MEDS: NON-FORMULARY ITEM 1 % TOPICAL (08:31)
[2024-10-02] MEDS: NON-FORMULARY ITEM 1 GRAM TOPICAL (08:31)
[2024-10-02] MEDS: OSCAL 500 + D 500 MG PO (08:31)
[2024-10-02] MEDS: CLOBETASOL PROPIONATE 0.05% CREAM 1 APPLIC TOPICAL (08:31)
[2024-10-02] MEDS: THERAGRAN 1 TABLET PO (08:31)
[2024-10-02] MEDS: VISBIOME 1 CAP PO (08:33)
[2024-10-02] MEDS: PLAQUENIL 200 MG PO (08:33)
[2024-10-02] MEDS: VITAMIN D3 (cholecalciferol) 50 MCG PO (08:33)
[2024-10-02 08:47] LABS: Blood Urea Nitrogen 19 mg/dl (7-17); Calcium 9.5 mg/dl (8.4-10.2); Carbon Dioxide 27 mmol/L (22-30); Chloride 107 mmol/L (98-107); Estimated Creatinine Clearance 101 ml/min; Glucose 122 mg/dl (70-99); Potassium 4.4 mmol/L (3.5-5.1); Sodium 138 mmol/L (135-145); eGFR > 60.00
--- NOTE | 2024-10-02 12:15 | CM ---
Received consult for o2. Spoke with RN. patient not ready for d/c. She has not needed o2 today and has been on room air. As patient is so close to parameters set by o2 company for coverage, RN advised that it may be beneficial to get another
assessment done, prior to patient's discharge.
Spoke with patient who is agreeable to the plan and stated that she feeling fine at rest today without o2.
Plan: Case management will continue to follow and assist with discharge planning. Watch for o2 needs.
--- NOTE | 2024-10-02 14:57 | W.PN.PUL3 ---
Today's Communication / Plan
-
Reduce decadron tomorrow to 4mg IV q12hr and continue this dose until pt is ready for discharge home, at which point start 50mg daily and reduce by 10mg every 5th day until off
Already takes Trelegy 200mcg as an outpatient --> this is currently ordered for her and should be continued upon discharge
Changed DuoNebs to nebulized albuterol 1.25 mg which helped her jitteriness; no need for Atrovent given she is already getting Trelegy
Pepcid
Coumadin currently on hold given INR is >4; goal INR 2�3
Up OOB as tolerated
Encourage incentive spirometer
Outpatient pulmonary office follow-up already arranged with Dr. Flores for 10/11/2024 with full PFTs
No additional recommendations at this time. Pulmonary service will now sign off. Please reconsult if there are any additional questions/concerns, or if patient's respiratory status deteriorates.
Assessment
-
64-year-old female with history of APS on chronic Coumadin therapy, history of left lower extremity DVT followed by hematology, presents with 5 months of intermittent shortness of breath. She was started on inhaler therapy which she thought
initially helped but now notes increased shortness of breath with simple ambulation, saturation at home goes as low as 86%. She does not have oxygen therapy at home. She was treated with steroids empirically last week with her primary, now
presents with increased shortness of breath and hypoxia. We are asked to comment on a pulmonary process
Acute hypoxic respiratory insufficiency
86% on room air, questionable chronic component
Bilateral groundglass changes per CT imaging with lower lobe predominant bronchial wall thickening consistent with bronchiolitis
Fine crackles on exam
17 pound weight loss, intentional
Conditions present prior to admission
History of APS, on chronic Coumadin
Follows hematology ([facility])
History of left lower extremity DVT
Recently diagnosed lichen planus on Humira as an outpatient
History of asthma
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
Hypertension
GERD
Family history of autoimmune disease (Sjogren's, lupus, RA, FM)
Patient with negative rheumatological workup 2021
Plan/recommendations
At this time, patient has markedly improved, now on room air after being on 2 L/min nasal cannula yesterday. Also yesterday she was wheezing and today she says she feels better and the wheezing has resolved.
Patient states she has noticed that she has low oxygen levels on and off over the past few weeks to months
Treated with steroids last week, thinks it may have helped somewhat but not sure
Patient has had extensive rheumatological workup in the past, negative
Fine crackles on exam noted
Reviewed CT chest. Per my review there is diffuse groundglass abnormality
Prior CT chest earlier this year showed a mosaic pattern
Cardiac workup to date has been negative
Moving forward, we reviewed the differential for diffuse groundglass infiltrate. She also has significant bronchial wall thickening in the lower lobes bilaterally consistent with a bronchiolitis
Inflammation, infection, fluid are all possibilities
She describes exposure to significant pollen and was working outdoors in her garden all weekend and noticed increased symptoms thereafter
She claims she has a hypersensitivity to mold
I did advise that she should consider allergy testing, which can be done via blood testing or she could see an supervisor commercial fish hatchery for skin prick testing
For now, we will need to treat empiric inflammation and possible infection
Continue doxycycline
Continue Decadron 4mgIV q8hr --> tomorrow would drop to 4mg IV q12hr and continue this dose until pt is ready for discharge home, at which point start 50mg daily and reduce by 10mg every 5th day until off
No need for Pepcid as she does not qualify for stress ulcer ppx
Positional therapy
She reported that she was getting jittery with the DuoNebs, and I changed them to low-dose albuterol and that has markedly helped her symptoms of jitteriness
Given the significant bronchial wall thickening seen on CTA chest from 09/29/2024, believe that she would benefit from an inhaled corticosteroid in addition to slow oral steroid taper--> she is already taking Trelegy 200mcg, which she should continue
Low suspicion for thromboembolic process given chronic warfarin therapy
Given crackles and diffuse groundglass changes, do not feel that additional testing is necessary to rule out shunt (i.e. VQ scan to assess shunt physiology)
Patient does describe symptoms suggestive of sleep disordered breathing but she has lost 17 pounds intentionally
she may require additional testing depending on clinical course but this can be determined as outpatient
The above was reviewed like with the patient. All questions answered
Complex decision-making process
Patient is scheduled to follow-up in the office with Dr. Flores with PFT 10/11/2024
Believe patient will be ready for discharge tomorrow.
PT/OT
No additional recommendations at this time. Pulmonary service will now sign off. Thank you for allowing us to be involved in the care of this patient. Please reconsult if there are any additional questions/concerns, or if patient's respiratory
status deteriorates.
Total time spent today was 37 minutes for this encounter. Time includes reviewing laboratory test/imaging results, reviewing pertinent medical records, obtaining and reviewing medical history, performing an appropriate exam, ordering medications,
tests and procedures. Time also includes documentation of this encounter, coordinating patient care and communicating with other healthcare professionals. Total time does not include separately billed tests performed on this date of service.
Subjective Data
-
Date of Service:
Date of Service: October 02, 2024
Chief Complaint: Pulmonary Follow Up
Subjective:
Pt seen this AM (late note entry). She says she feels 'much better.' No significant cough. The jittery feeling she was getting with the DuoNebs is now much better on the lower dose of albuterol. She is eager to go home hopefully by tomorrow.
Denies chest pain, N/V/f/c.
Review of Systems
General: Other (Negative unless mentioned above)
Objective Data
Data Reviewed
Vital Signs / I&O / Oxygen:
Vital Signs
Temp Pulse Resp BP Pulse Ox
98.3 F 69 16 135/77 94
10/02/24 07:25 10/02/24 08:30 10/02/24 07:25 10/02/24 08:30 10/02/24 07:25
Intake and Output
10/01/24 10/02/24 10/03/24
06:59 06:59 06:59
Intake Total 1200 / 1200 1560 / 1560
Balance 1200 / 1200 1560 / 1560
SaO2 94
Nasal Cannula flow liters per 2
minute
Physical Exam
General: Respiratory Distress (negative), Comfortable, Chills (negative), Sweats (negative) and Other (pleasant mood)
HEENT: Normocephalic, Anicteric and Other (thick neck)
Cardiovascular: S1-S2, Murmur (RUDDY heard best at RUSB) and Peripheral Edema (+1 lower extremity edema bilaterally)
Respiratory: Wheeze (negative), Rhonchi (negative), Non-Labored Respirations and Other (Scattered coarse breath sounds heard bilaterally)
GI: Soft, Non Distended, Non Tender and Normal Bowel Sounds
Neurology: AO x 3 and Tremors (negative)
Skin: Warm, Dry, Cyanosis (negative) and Jaundice (negative)
Labs/Micro/Reports
Lab Data
10/01/24 07:28
10/02/24 06:58
Laboratory Results
10/02/24
06:58
PT 43.0 H
INR 4.61
[2024-10-02 15:25] VITALS: BP 139/68
[2024-10-02] MEDS: TUMS CHEWABLE TABLET 200 MG PO (16:53)
[2024-10-02] MEDS: CLOBETASOL PROPIONATE 0.05% CREAM TOPICAL (20:47)
[2024-10-02] MEDS: CRESTOR 5 MG PO (20:52)
[2024-10-02] MEDS: TOPROL XL 12.5 MG PO (20:52)
[2024-10-02 23:15] VITALS: BP 138/74
[2024-10-03 07:25] VITALS: BP 129/66
[2024-10-03] MEDS: NON-FORMULARY ITEM 1 UNIT INH (07:31)
[2024-10-03] MEDS: VENTOLIN NEBULES 1.25 MG INH ×2 (07:31→14:36)
[2024-10-03] MEDS: PLAQUENIL 200 MG PO (08:11)
[2024-10-03] MEDS: VIBRAMYCIN 100 MG PO (08:11)
[2024-10-03] MEDS: VISBIOME 1 CAP PO (08:11)
[2024-10-03] MEDS: MUCINEX 600 MG PO (08:11)
[2024-10-03] MEDS: VITAMIN B-12 1000 MCG PO (08:11)
[2024-10-03] MEDS: MAG-TAB SR 84 MG PO (08:11)
[2024-10-03] MEDS: DECADRON 4 MG IV (08:12)
[2024-10-03] MEDS: FOLVITE 1 MG PO (08:12)
[2024-10-03] MEDS: METAMUCIL, KONSYL 1 PACKET PO (08:12)
[2024-10-03] MEDS: OSCAL 500 + D 500 MG PO (08:12)
[2024-10-03] MEDS: THERAGRAN 1 TABLET PO (08:12)
[2024-10-03] MEDS: VITAMIN D3 (cholecalciferol) 50 MCG PO (08:12)
[2024-10-03] MEDS: ZESTRIL 40 MG PO (08:12)
[2024-10-03] MEDS: NON-FORMULARY ITEM 1 GRAM TOPICAL (08:15)
[2024-10-03] MEDS: CLOBETASOL PROPIONATE 0.05% CREAM 1 APPLIC TOPICAL (08:15)
[2024-10-03] MEDS: NON-FORMULARY ITEM 1 % TOPICAL (08:16)
[2024-10-03 08:27] VITALS: BMI 39.3
--- NOTE | 2024-10-03 08:46 | W.PN.HOSP.TC ---
Addendum entered and electronically signed by Miguel Lopez MD 10/03/24 22:33:
Attending Addendum:
I saw and evaluated the patient. I reviewed the resident�s note and agree with findings and plan as documented in the resident�s note. Sub: Feels greatly improved. Wants to go home. Denies SOB cough wheeze. Full 12 point ROS reviewed and negative
except as documented Exam: Vitals reviewed in chart GEN-NAD heart RRR lungs clear abd soft LE no edema
Plan:
# Acute Bronchitis
CT chest negative for pulmonary embolism-cardiac markers normal-chest CT consistent with bilateral groundglass appearance
cont doxy
wean to PO steroids as OP
Pulmonology consult appreciated-suggested to continue to treat empiric inflammation and possible infection-do not feel additional testing is necessary(i.e. VQ scan to assess shunt physiology)
Patient scheduled for pulmonary function test for October 11, 2024-continue workup on outpatient basis
# Acute Hypoxemic Resp Failure
- weaned off o2
# Supratherapeutic INR
Patient has history of antiphospholipid syndrome and DVT
Diligently keeps record of her INR
Daily INR and warfarin dose adjustment
INR 4 on 10/03- hold and recheck in am onc to adjust as OP likely due to abx
# Lichen planus
Diagnosed 2 to 2-1/2 years ago, involves mucous membranes-On Humira and hydroxychloroquine
Follows up with her wood borer-continue metronidazole/ivermectin creams the patient brought with her
#Antiphospholipid syndrome
Diagnosed in 2022
On chronic Coumadin therapy, follows up with Dr. Warner
#Bilateral chronic lower extremity edema
#History of DVT
#Hypertension-continue metoprolol lisinopril
DVT prophylaxis-warfarin
CODE STATUS-full code
Dispo- DC home
Time spent coordinating care, DC planning, review of DC plan of care with resident, transition of care, review of records, med rec/scripts sent electronically, consults, notes, d/w consultants, nursing, and CM� 32 mins
Original Note:
Today's Communication/Plan
-
;/
d/c today
steroid taper
continue doxycycline for 3 more days to complete 7 days
Assessment / Plan
Assessment / Plan
Assessment/plan
Assessment/plan
#Acute hypoxic respiratory insufficiency secondary to bronchiolitis
-CXR on presentation unremarkable
-CT scan with no evidence of pulmonary embolism, mild bibasilar segmental atelectasis
-Pulmonology consulted, input appreciated
-Currently on doxycycline(D4)
-Cardiac workup negative to date
-Continue Trelegy 200 mcg
-Initiated on IV steroid, nebulizer treatments
-Symptoms improved with treatment regimen above
-Plan to transition to oral steroids taper today prior to DC
-Follow-up pulmonology outpatient
#History of left lower extremity DVT
#Antiphospholipid syndrome
-Follows sample tester ()
-Patient states she checks INR at home
-Daily INR and warfarin dose adjustment
-INR 4.02 today, continue holding warfarin
-Check INR tomorrow, and resume warfarin once therapeutic
# History of lichen planus involving mucosal membranes
-Continue home regimen
#Hypertension
-continue metoprolol lisinopril
DVT prophylaxis-warfarin(on hold)
CODE STATUS-full code
Anticipated Discharge: Today
Subjective/Interval History
-
Patient seen and examined at bedside. Denies shortness of breath.
Objective Data
-
Labs:
Laboratory Results
10/03/24
08:43
PT Pending
INR Pending
Vital Signs:
Vital Signs
Temp Pulse Resp BP Pulse Ox
98.0 F 77 16 129/66 93
10/03/24 07:25 10/03/24 08:12 10/03/24 07:34 10/03/24 08:12 10/03/24 07:34
I&O
10/02/24 10/03/24 10/04/24
06:59 06:59 06:59
Intake Total 1560 / 1560 240 / 240
Balance 1560 / 1560 240 / 240
Review of Systems
-
All other systems: Reviewed and negative (Except as documented)
Physical Exam
-
General: Well Developed, Well Nourished and No Apparent Distress
HEENT: Normocephalic and Atraumatic
Respiratory: Clear to Auscultation; Negative Wheezes, Rales or Rhonchi
Cardiac: Regular Rhythm and S1/S2
GI: Soft, Nontender, Nondistended and Normal Bowel Sounds
Musculoskeletal: No Edema
Neuro: Awake, Alert, Oriented and AO x 3
Psych: Calm
[2024-10-03 08:50] VITALS: PULSE 89; O2SAT 94
[2024-10-03 09:08] LABS: INR 4.02; PT 38.8 Sec (11.4-14.6)
[2024-10-03 09:10] VITALS: O2SAT 96
[2024-10-03 09:46] VITALS: O2SAT 95
[2024-10-03 14:45] VITALS: BP 127/65
--- NOTE | 2024-10-03 15:52 | CM ---
MD indicated discharge today.
Spoke with pt she said Geoff will drive her home.
Pt weaned off oxygen .
Offered VN she declined need.
IMM reviewed signed on chart
PLAn Home no needs
--- NOTE | 2024-10-03 17:26 | W.DCSUMMARY ---
Addendum entered and electronically signed by Miguel Lopez MD 10/03/24 22:34:
Read, reviewed, and agree. See same day progress note for additional details.
Ezekiel Lopez MD
Original Note:
Documented by User: Harshad Cruz MD, Resident 10/03/24 17:51
Discharge Summary
Discharge Data
Date of Admission: 09/29/24
Date of Discharge: 10/03/24
-
Pending Results: No
Hospital Course
Brief Hospital course; This is a 64-year-old female with past medical history of antiphospholipid syndrome on Coumadin, prior DVT, asthma, hypertension who presented to ER 09/29 complaining of shortness of breath with exertion. The patient states
she has been short of breath since June however it has gotten worse over the past few weeks. In addition she reports she has a decreased O2 sats. Patient reports she has nonproductive cough. 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
asthma, started on Trelegy and albuterol. In addition she was started on a 5-day course of prednisone and completed regimen prior to hospitalization. Patient states she saw cardiology for cardiac workup and was initiated on metoprolol and statin
otherwise unremarkable cardiac workup. Prior to admission INR was 6, as she was not using her Coumadin for the past 3 days. She states she checks her INR at home and she follows house parent for INR, Coumadin dosage monitoring. On presentation to
the ED, blood pressure 159/83, pulse 96, O2 sat 93% on room air. Laboratory including CBC, BMP was unremarkable. INR on presentation 4.61. Patient was evaluated with a chest x-ray which was unremarkable. Patient was further evaluated with CT
chest with no evidence of pulmonary embolism or thoracic aortic dissection. Mild bibasilar subsegmental atelectasis, otherwise clear lungs. Given patient's unexplained hypoxia and external shortness of breath, pulmonology was consulted for further
evaluation. Patient was started on doxycycline to treat empiric inflammation,possible infection and atypical bacterial coverage. In addition she was started on IV Decadron. On day 2 of hospitalization, patient reports improvement of shortness of
breath. She was eventually transitioned to oral prednisone taper prior to discharge. Trelegy was continued on discharge. She will also be continued on doxycycline to complete 7-day course. On day 4 of hospitalization, INR was noted to be
supratherapeutic at 4.61. Her Coumadin dosage was held, INR was repeated which was 4.02 on the day of discharge. Decision was made to hold the Coumadin dosage prior to discharge, with plans to check INR tomorrow, and resume Coumadin once
therapeutic. Patient reports she checks her INR at home and she follows with house parent for further management of anticoagulation and antiphospholipid syndrome.
On the day of discharge, patient was awake alert, oriented in no acute distress. Lungs are clear to auscultation. S1-S2, regular rate, regular rhythm. Abdomen soft, nontender, nondistended. Bilateral extremities show no peripheral edema.
CT Abdomen W/wo Iv Contrast
Impression;
Essentially stable anterolateral left upper pole renal cyst measures 1.5 cm. No abnormal enhancement.
left renal 6 mm low-attenuation structure, too small to fully characterize. Statistically likely additional cyst.
Stable low-attenuation 1 cm splenic structure. Stable left adrenal 7 mm nodule.
Discharge Plan
-
Patient Disposition: Home (Routine Discharge)
Discharge Diagnosis/Procedures: Hypoxemia secondary to bronchiolitis
Antiphospholipid syndrome
Condition: Fair
Diet: No restrictions
Activity: No restrictions
Blood Work: Repeat INR in 1-2 days
Referrals:
Jeremy Freed PA-C [Family Provider, Family Practice] - in one day
Nash Flores MD [Active, Pulmonary Medicine] - 10/11/24 3:00 pm
Additional Discharge Medication Instructions: Hold warfarin until INR repeated.
Continue doxycycline for additional 3 days
prednisone taper
Prescriptions:
New
prednisone 10 mg Tablet
See Rx Instructions .ROUTE .COMPLEX Qty: 60 0RF
Rx Instructions:
Take By Mouth:
50 mg daily x5 days, 40 mg daily x5 days,
30 mg daily x5 days, 20 mg daily x5 days,
10 mg daily x5 days
doxycycline hyclate 100 mg Capsule
100 mg PO Q12 Qty: 6 0RF
famotidine [Pepcid] 20 mg tablet
20 mg PO DAILY Qty: 10 0RF
Continued
multivitamin Tablet
1 tab PO DAILY
clobetasol 0.05 % Gel
1 applic TOPICAL BID
folic acid 1 mg Tablet
1 mg PO DAILY
hydroxychloroquine 200 mg Tablet
200 mg PO DAILY
lisinopril 40 mg Tablet
40 mg PO DAILY
magnesium 200 mg Tablet
600 mg PO DAILY
rosuvastatin 5 mg Tablet
5 mg PO HS
Glucosamine Complex-MSM Capsule
1 cap PO DAILY
fluoride (sodium) [Sodium Fluoride 5000 Dry Mouth] 1.1 % Paste
1 applic DENTAL HS
Humira Pen 40 mg/0.8 mL Pen Injector Kit
40 mg SC Q2W
cholecalciferol (vitamin D3) [Vitamin D3] 50 mcg (2,000 unit) Tablet
50 mcg PO DAILY
L.acidophilus-Bifido.longum [Probiotic Pearls] 15 mg (1 billion cell) Capsule,Delayed Release(Dr/Ec)
1 cap PO DAILY
Caltrate 600 plus D 600 mg-20 mcg (800 unit) Tablet,Chewable
1 tab PO DAILY
Vital High Protein 0.09 gram- 1 kcal/mL Liquid
2 ea PO DAILY
ivermectin 1 % Cream
1 applic TOPICAL DAILYPRN PRN (Reason: rosacia)
Metamucil 3.4 gram/5.4 gram Powder
1 tbsp PO DAILY
vitamin V47-nlpih acid 1,000-400 mcg Lozenge
1 alondra SUBLINGUAL DAILY
Trelegy Ellipta 200-62.5-25 mcg Blister With Device
1 inh INHALATION DAILY
zinc glycinate 30 mg Capsule
30 mg PO DAILY
nitroglycerin 0.4 mg tablet, sublingual
0.4 mg sublingual Q5MPRN PRN (Reason: chest pain)
metoprolol succinate 25 mg tablet extended release 24 hr
12.5 mg PO HS
albuterol sulfate 90 mcg/actuation HFA aerosol inhaler
1 puff INHALATION Q4HPRN PRN (Reason: shortness of breath)
guaifenesin [Mucinex] 600 mg Tablet Extended Release 12hr
600 mg PO DAILY
Held
warfarin 7.5 mg Tablet
7.5 mg PO QPM
Hold Instructions: Resume on 10/05/24. hold until INR therapeutic. Repeat INR tomorrow
Discontinued
Delsym Cough 15 mg Tablet
15 mg PO HSPRN PRN (Reason: cough)
Discharge Orders:
Discharge Patient (As Directed); Ordered 10/03/24
Ordered By: Harshad Cruz
Discharge Date and Time
Discharge Date/Time: 10/03/24 15:52
Print Language: [place] CITIZ[place]

Documented by User: Miguel Lopez MD 10/03/24 22:29
Discharge Summary
Discharge Data
Date of Admission: 09/29/24
Date of Discharge: 10/03/24
Discharge Plan
-
Patient Disposition: Home (Routine Discharge)
Discharge Diagnosis/Procedures: Hypoxemia secondary to bronchiolitis
Antiphospholipid syndrome
Condition: Fair
Diet: No restrictions
Activity: No restrictions
Blood Work: Repeat INR in 1-2 days
Referrals:
Jeremy Freed PA-C [Family Provider, Family Practice] - in one day
Nash Flores MD [Active, Pulmonary Medicine] - 10/11/24 3:00 pm
Additional Discharge Medication Instructions: Hold warfarin until INR repeated.
Continue doxycycline for additional 3 days
prednisone taper
Prescriptions:
New
prednisone 10 mg Tablet
See Rx Instructions .ROUTE .COMPLEX Qty: 60 0RF
Rx Instructions:
Take By Mouth:
50 mg daily x5 days, 40 mg daily x5 days,
30 mg daily x5 days, 20 mg daily x5 days,
10 mg daily x5 days
doxycycline hyclate 100 mg Capsule
100 mg PO Q12 Qty: 6 0RF
famotidine [Pepcid] 20 mg tablet
20 mg PO DAILY Qty: 10 0RF
Continued
multivitamin Tablet
1 tab PO DAILY
clobetasol 0.05 % Gel
1 applic TOPICAL BID
folic acid 1 mg Tablet
1 mg PO DAILY
hydroxychloroquine 200 mg Tablet
200 mg PO DAILY
lisinopril 40 mg Tablet
40 mg PO DAILY
magnesium 200 mg Tablet
600 mg PO DAILY
rosuvastatin 5 mg Tablet
5 mg PO HS
Glucosamine Complex-MSM Capsule
1 cap PO DAILY
fluoride (sodium) [Sodium Fluoride 5000 Dry Mouth] 1.1 % Paste
1 applic DENTAL HS
Humira Pen 40 mg/0.8 mL Pen Injector Kit
40 mg SC Q2W
cholecalciferol (vitamin D3) [Vitamin D3] 50 mcg (2,000 unit) Tablet
50 mcg PO DAILY
L.acidophilus-Bifido.longum [Probiotic Pearls] 15 mg (1 billion cell) Capsule,Delayed Release(Dr/Ec)
1 cap PO DAILY
Caltrate 600 plus D 600 mg-20 mcg (800 unit) Tablet,Chewable
1 tab PO DAILY
Vital High Protein 0.09 gram- 1 kcal/mL Liquid
2 ea PO DAILY
ivermectin 1 % Cream
1 applic TOPICAL DAILYPRN PRN (Reason: rosacia)
Metamucil 3.4 gram/5.4 gram Powder
1 tbsp PO DAILY
vitamin Z10-hynyj acid 1,000-400 mcg Lozenge
1 alondra SUBLINGUAL DAILY
Trelegy Ellipta 200-62.5-25 mcg Blister With Device
1 inh INHALATION DAILY
zinc glycinate 30 mg Capsule
30 mg PO DAILY
nitroglycerin 0.4 mg tablet, sublingual
0.4 mg sublingual Q5MPRN PRN (Reason: chest pain)
metoprolol succinate 25 mg tablet extended release 24 hr
12.5 mg PO HS
albuterol sulfate 90 mcg/actuation HFA aerosol inhaler
1 puff INHALATION Q4HPRN PRN (Reason: shortness of breath)
guaifenesin [Mucinex] 600 mg Tablet Extended Release 12hr
600 mg PO DAILY
Held
warfarin 7.5 mg Tablet
7.5 mg PO QPM
Hold Instructions: Resume on 10/05/24. hold until INR therapeutic. Repeat INR tomorrow
Discontinued
Delsym Cough 15 mg Tablet
15 mg PO HSPRN PRN (Reason: cough)
Discharge Orders:
Discharge Patient (As Directed); Ordered 10/03/24
Ordered By: Harshad Cruz
Discharge Date and Time
Discharge Date/Time: 10/03/24 15:52
Print Language: [place]
== END 2024-10-03 15:52 | disposition home or self-care (01) | DRG 202 ==
LOC: 4 EAST ACU 16:37
PROVIDERS: Internal Medicine; Physician Assistant; Student in an Organized Health Care Education/Training Program; ADMITTING PHYSICIAN Hospitalist; ATTENDING PHYSICIAN Family Medicine; CONSULT PHYSICIAN Internal Medicine Critical Care Medicine; EMERGENCY PHYSICIAN Student in an Organized Health Care Education/Training Program; FAMILY PHYSICIAN Physician Assistant Medical
DX: J21.9 Acute bronchiolitis, unspecified (principal); J96.01 Acute respiratory failure with hypoxia; D68.61 Antiphospholipid syndrome; I10 Essential (primary) hypertension; L43.9 Lichen planus, unspecified; J45.909 Unspecified asthma, uncomplicated; K21.9 Gastro-esophageal reflux disease without esophagitis; R60.0 Localized edema; Z77.22 Contact with and (suspected) exposure to environmental tobacco smoke (acute) (chronic); Z79.01 Long term (current) use of anticoagulants; Z79.899 Other long term (current) drug therapy; Z86.718 Personal history of other venous thrombosis and embolism
CPT/HCPCS: 71275; 80048; 80053; 83735; 83880; 84484; 85025; 85027; 85610; 85652; 93005; 94640; 97161; 97165; 99285; Q9967

== ENCOUNTER → 2024-12-15 09:23 | Outpatient (REF) | payer OTHER, SELFPAY | LOC: HWWDC 09:23 | PROVIDERS: ATTENDING PHYSICIAN Obstetrics & Gynecology Gynecology; FAMILY PHYSICIAN Physician Assistant Medical | DX: Z12.31 Encounter for screening mammogram for malignant neoplasm of breast (principal) | CPT/HCPCS: 77063; 77067 ==

== ENCOUNTER → 2025-03-07 08:34 | Outpatient (REF) | payer OTHER, SELFPAY | LOC: RAD 08:34 | PROVIDERS: ATTENDING PHYSICIAN Physician Assistant Medical; REFERRING PHYSICIAN Surgery Vascular Surgery | DX: M85.89 Other specified disorders of bone density and structure, multiple sites (principal); I82.502 Chronic embolism and thrombosis of unspecified deep veins of left lower extremity; M79.3 Panniculitis, unspecified | CPT/HCPCS: 93971 ==

== ENCOUNTER → 2025-03-16 14:35 | Outpatient (REF) | payer OTHER, SELFPAY | LOC: HWRCS 14:35 | PROVIDERS: ATTENDING PHYSICIAN Family Medicine | DX: R60.0 Localized edema (principal); I87.2 Venous insufficiency (chronic) (peripheral) | CPT/HCPCS: 93306 ==

== ENCOUNTER 2025-04-03 06:12 | Day surgery (SDC) | payer OTHER, SELFPAY | END 2025-04-03 09:54 | disposition home or self-care (01) | LOC: GI 06:12 | PROVIDERS: ATTENDING PHYSICIAN Internal Medicine | DX: K44.9 Diaphragmatic hernia without obstruction or gangrene (principal); K21.00 Gastro-esophageal reflux disease with esophagitis, without bleeding | CPT/HCPCS: 43235 ==